=== PATIENT | female | born 1940 | race Asian ===

== ENCOUNTER 2017-10-12 13:30 | Outpatient (RCR) | payer OTHER | END 2017-11-03 | disposition home or self-care (01) | LOC: PTY 13:30 | DX: S46.819D Strain of other muscles, fascia and tendons at shoulder and upper arm level, unspecified arm, subsequent encounter (principal) ==

== ENCOUNTER 2017-10-25 14:30 | Outpatient (RCR) | payer OTHER | END 2017-11-03 | disposition home or self-care (01) | LOC: PTY 14:30 | PROVIDERS: ATTEND Internal Medicine | DX: M25.561 Pain in right knee (principal); G89.29 Other chronic pain ==

== ENCOUNTER 2017-11-09 13:00 | Outpatient (RCR) | payer OTHER | END 2017-12-03 | disposition home or self-care (01) | LOC: PTY 13:00 | PROVIDERS: ATTEND Internal Medicine | DX: M25.561 Pain in right knee (principal); G89.29 Other chronic pain | CPT/HCPCS: 97110; 97140; G0283 ==